=== PATIENT | male | born 1995 | race Caucasian/White ===

== ENCOUNTER 2018-08-29 16:15 | Emergency (ER) | payer SELFPAY ==
[~2018-08-29] VITALS: Ht 180.3 cm; Wt 62.6 kg
--- NOTE | 2018-08-29 16:21 | NUR ---
BIB SELF W C/O LEFT SIDE OF THE FACE PARALYSIS SINCE WEDNESDAY AROUND 7PM, TO ER BED 12, HOOKED TO [facility], CHANGED TO DR AGUSTO HERNANDES AT BEDSIDE
--- NOTE | 2018-08-29 16:47 | NUR ---
Patient discharged to home in stable condition. Written and verbal after care instructions given. Patient verbalizes understanding of instruction.
[2018-08-29 16:48] VITALS: BP 134/75
== END 2018-08-29 16:49 | disposition home or self-care (01) ==
LOC: ER 16:15
DX: G51.0 Bell's palsy (principal)
CPT/HCPCS: A6410